=== PATIENT | female | born 1985 | race Caucasian/White ===

== ENCOUNTER 2020-01-10 16:24 | Emergency (ER) | payer OTHER ==
[~2020-01-10] VITALS: Ht 157.5 cm; Wt 70.3 kg
[2020-01-10] MEDS ORDERED: IBU800 MG PO (19:02)
[2020-01-10] MEDS ORDERED: Silvadene20 GM TOP (19:02)
== END 2020-01-10 19:52 | disposition home or self-care (01) ==
LOC: ER 16:24
DX: T23.011A Burn of unspecified degree of right thumb (nail), initial encounter (principal); X10.1XXA Contact with hot food, initial encounter
CPT/HCPCS: 99283-25; A9270